=== PATIENT | female | born 1995 | race Two or more races ===

== ENCOUNTER 2019-04-20 00:55 | Emergency (ER) | payer OTHER ==
[~2019-04-20] VITALS: Ht 149.9 cm; Wt 43.5 kg
[2019-04-20] MEDS ORDERED: AMOX-CLAV 500-1 EACH PO (04:38)
[2019-04-20] MEDS ORDERED: TUSNEL LIQUID178 ML PO (04:38)
== END 2019-04-20 04:50 | disposition home or self-care (01) ==
LOC: ER 00:55
DX: J06.9 Acute upper respiratory infection, unspecified (principal)

== ENCOUNTER 2019-06-19 00:07 | Emergency (ER) | payer OTHER ==
[~2019-06-19] VITALS: Ht 144.8 cm; Wt 45.4 kg
[~2019-06-19 00:07] MED LIST: AMOX-CLAV 500-1 EACH PO; TUSNEL LIQUID178 ML PO
[2019-06-19] MEDS ORDERED: ORPHENADRINE C100 MG PO (00:26)
[2019-06-19] MEDS ORDERED: NAPROXEN500 MG PO (00:26)
== END 2019-06-19 00:46 | disposition home or self-care (01) ==
LOC: ER 00:07
DX: M54.5 Low back pain (principal)

== ENCOUNTER 2021-07-20 09:03 | Emergency (ER) | payer OTHER ==
[~2021-07-20] VITALS: Ht 144.8 cm; Wt 45.4 kg
[~2021-07-20 09:03] MED LIST changes: +NAPROXEN500 MG PO; +ORPHENADRINE C100 MG PO
== END 2021-07-20 13:48 | disposition home or self-care (01) ==
LOC: ER 09:03
DX: B34.9 Viral infection, unspecified (principal)

== ENCOUNTER 2023-03-05 21:31 | Emergency (ER) | payer OTHER ==
[~2023-03-05] VITALS: Ht 142.2 cm; Wt 47.6 kg
[2023-03-05 23:56] LABS: HEMATOCRIT 35.4 % (36.0-45.00); MEAN CELL VOLUME 90.9 fL (80.00-100.00); MEAN CORPUSCULAR HEMOGLOBIN 30.9 pg (27.00-32.0); PLATELET COUNT 392 K/uL (150-450)
[2023-03-06] MEDS ORDERED: ALBUTEROL2.5 MG/3 M IH ×2 (03:23→03:28)
[2023-03-06] MEDS ORDERED: BUDESONIDE0.5 MG/2 M IH ×2 (03:23→03:28)
[2023-03-06] MEDS ORDERED: ZYNCOF 20-400120 ML PO ×2 (03:23→03:28)
== END 2023-03-06 04:17 | disposition home or self-care (01) ==
LOC: ER 21:31
PROVIDERS: General Practice
DX: J40 Bronchitis, not specified as acute or chronic (principal); Z20.822 Contact with and (suspected) exposure to COVID-19

== ENCOUNTER 2023-06-09 17:46 | Emergency (ER) | payer OTHER ==
[~2023-06-09] VITALS: Ht 144.8 cm; Wt 48.1 kg
[~2023-06-09 17:46] MED LIST changes: +ALBUTEROL2.5 MG/3 M IH; +BUDESONIDE0.5 MG/2 M IH; +ZYNCOF 20-400120 ML PO
[2023-06-09 20:51] LABS: HEMATOCRIT 36.7 % (36.0-45.00); HEMOGLOBIN 12.5 g/dL (12.0-15.00); MEAN CELL VOLUME 90.7 fL (80.00-100.00); MEAN CORPUSCULAR HEMOGLOBIN 30.9 pg (27.00-32.0); MEAN CORPUSCULAR HGB CONC 34.1 g/dl (32.0-36.0); PLATELET COUNT 468 K/uL (150-450); RED BLOOD COUNT 4.05 M/uL (4.00-6.00); RED CELL DISTRIBUTION WIDTH 13.4 % (11.5-14.5)
[2023-06-09 21:00] LABS: PH,URINE 7.5 (5.0-8.0); URINE APPEARANCE Cloudy; URINE BILIRRUBIN Negative (NEGATIVE); URINE BLOOD Negative; URINE COLOR Yellow; URINE GLUCOSE Negative (NEGATIVE); URINE LEUKOCYTE Negative; URINE NITRATE Negative; URINE PROTEIN Negative (NEGATIVE)
[2023-06-09 21:01] LABS: URINE BACTERIA 3592.1 uL (0.0-1933); URINE RBC 8.7 uL (0.0-20.8); URINE WBC 47.3 uL (0.0-23.2)
[2023-06-09 21:04] LABS: CALCIUM 9.1 mg/dL (8.5-10.1); CREATININE SERUM 0.7 mg/dL (0.55-1.02); GFR 100.38; POTASSIUM 3.99 mEq/L (3.5-5.1)
[2023-06-09] MEDS ORDERED: KETOROLAC TROMETHAMINE 30 MG VIAL IM STA (21:27)
== END 2023-06-09 21:45 | disposition home or self-care (01) ==
LOC: ER 17:46
PROVIDERS: General Practice
DX: R10.31 Right lower quadrant pain (principal)

== ENCOUNTER 2024-01-02 15:57 | Emergency (ER) | payer OTHER ==
[~2024-01-02] VITALS: Ht 144.8 cm; Wt 50.3 kg
[2024-01-02 17:36] LABS: HEMATOCRIT 32.4 % (36.0-45.00); MEAN CELL VOLUME 90.8 fL (80.00-100.00); MEAN CORPUSCULAR HEMOGLOBIN 30.9 pg (27.00-32.0); MEAN CORPUSCULAR HGB CONC 34.1 g/dl (32.0-36.0); PLATELET COUNT 429 K/uL (150-450); RED BLOOD COUNT 3.57 M/uL (4.00-6.00); RED CELL DISTRIBUTION WIDTH 12.6 % (11.5-14.5)
[2024-01-02 18:01] LABS: CREATININE SERUM 0.6 mg/dL (0.55-1.02); GFR 119.92; POTASSIUM 3.5 mEq/L (3.5-5.1)
== END 2024-01-03 00:39 | disposition home or self-care (01) ==
LOC: ER 15:59
PROVIDERS: Emergency Medicine
DX: N93.9 Abnormal uterine and vaginal bleeding, unspecified (principal); N80.9 Endometriosis, unspecified

== ENCOUNTER 2024-07-27 11:45 | Inpatient (IN) | payer OTHER ==
[~2024-07-27] VITALS: Ht 144.8 cm; Wt 50.8 kg
[2024-07-27] MEDS ORDERED: SYEDA 28 TABLE1 EACH PO (13:15)
[2024-07-27 14:55] LABS: RH POSITIVE
[2024-08-04] MEDS ORDERED: METRONIDAZOLE/SODIUM CHLORIDE 500 MG/100 ML PIGGYBACK IV ONE (06:43)
[2024-08-04] MEDS ORDERED: CEFTRIAXONE SODIUM 2,000 MG VIAL ONE (06:43)
[2024-08-04] MEDS ORDERED: VISTASEAL DUAL APPICATOR 1 EACH APPL TOP ONE (08:08)
[2024-08-04] MEDS ORDERED: THROMBIN,HU/FIBRINOGEN/CALCIUM 10 ML SYRINGE TOP ONE (08:08)
[2024-08-04] MEDS ORDERED: RINGERS SOLUTION,LACTATED 1,000 ML IV SCH (10:02)
[2024-08-04] MEDS ORDERED: CELECOXIB 200 MG CAPSULE PO STA (10:03)
[2024-08-04] MEDS ORDERED: GABAPENTIN 100 MG CAPSULE PO SCH (10:04)
[2024-08-04] MEDS ORDERED: ONDANSETRON HCL 2 MG/ML VIAL IV SCH (12:00)
[2024-08-04] MEDS ORDERED: ACETAMINOPHEN 325 MG TABLET PO SCH (12:00)
[2024-08-04 12:21] LABS: MEAN CELL VOLUME 90.4 fL (80.00-100.00); MEAN CORPUSCULAR HGB CONC 33.3 g/dl (32.0-36.0); PLATELET COUNT 346 K/uL (150-450); RED BLOOD COUNT 3.87 M/uL (4.00-6.00); RED CELL DISTRIBUTION WIDTH 12.4 % (11.5-14.5)
[2024-08-04 12:22] LABS: HEMATOCRIT 35.1 % (36.0-45.00); HEMOGLOBIN 11.3 g/dL (12.0-15.00); MEAN CORPUSCULAR HEMOGLOBIN 29.1 pg (27.00-32.0)
[2024-08-04] MEDS ORDERED: CELECOXIB 200 MG CAPSULE PO ONE (12:35)
[2024-08-04] MEDS ORDERED: ACETAMINOPHEN 500 MG GEL..CAP PO ONE (13:42)
[2024-08-04] MEDS ORDERED: GABAPENTIN 100 MG CAPSULE PO ONE (13:42)
[2024-08-04 14:52] VITALS: BP 115/75
[2024-08-04 15:36] LABS: HEMATOCRIT 33.7 % (36.0-45.00); HEMOGLOBIN 11.2 g/dL (12.0-15.00); MEAN CELL VOLUME 89.5 fL (80.00-100.00); MEAN CORPUSCULAR HEMOGLOBIN 29.6 pg (27.00-32.0); MEAN CORPUSCULAR HGB CONC 33.1 g/dl (32.0-36.0); PLATELET COUNT 420 K/uL (150-450); RED BLOOD COUNT 3.77 M/uL (4.00-6.00); RED CELL DISTRIBUTION WIDTH 12.5 % (11.5-14.5)
[2024-08-04 15:43] LABS: CALCIUM 8.7 mg/dL (8.5-10.1); CREATININE SERUM 0.61 mg/dL (0.55-1.02); GFR 116.79; POTASSIUM 4.36 mEq/L (3.5-5.1)
[2024-08-04 16:00] VITALS: BP 107/71
[2024-08-05] VITALS: BP 110/68; O2SAT 97
[2024-08-05 06:23] LABS: HEMATOCRIT 29.5 % (36.0-45.00); HEMOGLOBIN 10.2 g/dL (12.0-15.00); MEAN CELL VOLUME 89.5 fL (80.00-100.00); MEAN CORPUSCULAR HGB CONC 34.7 g/dl (32.0-36.0); PLATELET COUNT 350 K/uL (150-450); RED CELL DISTRIBUTION WIDTH 12.7 % (11.5-14.5)
[2024-08-05 06:35] LABS: CALCIUM 8.3 mg/dL (8.5-10.1); CREATININE SERUM 0.52 mg/dL (0.55-1.02); GFR 140.41; POTASSIUM 4.09 mEq/L (3.5-5.1)
== END 2024-08-05 11:50 | disposition home or self-care (01) | DRG 743 ==
LOC: OB/GYN 08-04 05:00 → O/R 08-04 05:00 → SURH 08-04 10:45 → OB/GYN 08-04 12:16
PROVIDERS: Student in an Organized Health Care Education/Training Program; Surgery; Urology; ADMIT Obstetrics & Gynecology Gynecology; ATTEND Obstetrics & Gynecology Gynecology
PROC: 0DTJ4ZZ Resection of Appendix, Percutaneous Endoscopic Approach (ICD-10-PCS; 2024-08-04)
PROC: 0T788DZ Dilation of Bilateral Ureters with Intraluminal Device, Via Natural or Artificial Opening Endoscopic (ICD-10-PCS; 2024-08-04)
PROC: 0UT94ZZ Resection of Uterus, Percutaneous Endoscopic Approach (ICD-10-PCS; principal; 2024-08-04 10:45)
PROC: 0UT74ZZ Resection of Bilateral Fallopian Tubes, Percutaneous Endoscopic Approach (ICD-10-PCS; 2024-08-04 10:45)
PROC: 0UTC4ZZ Resection of Cervix, Percutaneous Endoscopic Approach (ICD-10-PCS; 2024-08-04 10:45)
DX: D25.9 Leiomyoma of uterus, unspecified (principal); R10.84 Generalized abdominal pain; N80.00 Endometriosis of the uterus, unspecified; N93.9 Abnormal uterine and vaginal bleeding, unspecified; N80.9 Endometriosis, unspecified; N80.201 Endometriosis of right fallopian tube, unspecified depth; N72 Inflammatory disease of cervix uteri

== ENCOUNTER → 2025-01-11 | Emergency (ER) | payer OTHER ==
[~2025-01-11] VITALS: Ht 144.8 cm; Wt 50.8 kg
[~2025-01-11] MED LIST changes: +0.9 % SODIUM CHLORIDE 1,000 ML IV ONE; +CEFTRIAXONE SODIUM 1,000 MG VIAL IV ONE; +CEFTRIAXONE SODIUM 1,000 MG VIAL ONE; +FAMOTIDINE/PF 20 MG/2 ML VIAL IV ONE; +FAMOTIDINE/PF 20 MG/2 ML VIAL ONE; +KETOROLAC TROMETHAMINE 30 MG VIAL IV ONE; +KETOROLAC TROMETHAMINE 30 MG VIAL ONE; +MACROBID 100 M100 MG PO; +ONDANSETRON HCL 2 MG/ML VIAL IV ONE; +ONDANSETRON HCL 2 MG/ML VIAL ONE; +SYEDA 28 TABLE1 EACH PO
[2025-01-11 16:29] LABS: BASO % 0.3 % (0.1-1.2); EOS # 0.07 (0.04-0.54); EOS % 0.5 % (0.7-7.0); LYMPH # 1.60 (1.18-3.74); LYMPH % 11.8 % (19.3-53.1); MEAN PLATELET VOLUME 8.30 fl (9.4-12.4); MONO # 0.52 (0.24-0.82); MONO % 3.8 % (4.7-12.5); NEUT # 11.30 (1.56-6.13); NEUT % 83.2 % (34.0-71.1); RED CELL DISTRIBUTION WIDTH 12.0 % (11.6-14.4)
[2025-01-11 16:55] LABS: INR 1.01
[2025-01-11 17:06] LABS: ALT/SGPT 45.0 U/L (12-78); AST/SGOT 29.0 U/L (15-37); BILIRUBIN TOTAL 0.35 mg/dL (0.3-1.2); BUN CREA RATIO 14.0 (7.0-25.0); CREATININE SERUM 0.76 mg/dL (0.55-1.02); GFR 90.62; GLOBULINA 4.3 G/DL (2.4-3.5); GLUCOSE FASTING 101.0 mg/dL (65-100); OSMOLALITY SERUM 279.0 MOSM/KG (275-295)
[2025-01-11 17:20] LABS: URINE APPEARANCE Clear; URINE BILIRRUBIN Negative (NEGATIVE); URINE BLOOD Trace; URINE COLOR Yellow; URINE GLUCOSE Negative (NEGATIVE); URINE KETONE Negative (NEGATIVE); URINE LEUKOCYTE Trace; URINE NITRATE Negative; URINE PROTEIN Negative (NEGATIVE); URINE UROBILINOGEN 0.2 E.U./dl
[2025-01-11 17:24] LABS: COVID-19 AG NEGATIVE (NEGATIVE)
[2025-01-11 17:24] LABS: URINE EPITHELIAL CELLS 3.5 uL (0.0-38.8); URINE WBC 25.0 uL (0.0-23.2)
[2025-01-11 17:32] LABS: URINE BACTERIA > 9821.5 uL (0.0-1933); URINE CAST 0.00 uL (0.0-1.40); URINE RBC 1.9 uL (0.0-20.8)
== END | disposition home or self-care (01) ==
LOC: ER 14:49
PROVIDERS: General Practice
DX: N39.0 Urinary tract infection, site not specified (principal); R51.9 Headache, unspecified; R53.81 Other malaise; R53.1 Weakness; N80.8 Other endometriosis; Z20.822 Contact with and (suspected) exposure to COVID-19